=== PATIENT | male | born 1985 | race Two or more races ===

== ENCOUNTER 2025-08-22 16:49 | Emergency (ER) | payer BC, SELFPAY ==
[2025-08-22 16:56] VITALS: BP 128/84
[2025-08-22 17:33] LABS: Hematocrit 41.5 % (39.0-52.0); Hemoglobin 14.9 g/dL (13.0-18.0); Mean Corp Hgb Conc. 35.9 g/dL (33.0-37.0); Mean Corpuscular Volume 83.7 fL (80.0-94.0); Platelet Count 277 10^3/uL (130-400); Red Cell Dist. Width 11.9 % (11.5-14.5)
[2025-08-22 17:35] LABS: ALT (SGPT) 16 U/L (0-50); AST (SGOT) 31 U/L (17-59); Albumin 5.2 g/dl (3.5-5.0); Alkaline Phosphatase 58 U/L (38-126); Blood Urea Nitrogen 20 mg/dl (9-20); Calcium 9.5 mg/dl (8.4-10.2); Carbon Dioxide 28 mmol/L (22-30); Chloride 102 mmol/L (98-107); Glucose 91 mg/dl (70-99); Lipase 71 U/L (23-300); Potassium 4.1 mmol/L (3.5-5.1); Sodium 136 mmol/L (135-145); Total Protein 8.0 g/dl (6.3-8.2); eGFR > 60.00
[2025-08-22 18:04] LABS: Troponin I < 0.012 ng/ml
[2025-08-22 18:46] LABS: Absolute Neutrophils -Man Diff 3.8 10^3/uL (1.4-6.5); Normal RBC Morphology Yes; Platelets Checked Yes; Total Cells Counted 100
[2025-08-22 18:58] LABS: D-Dimer 0.33 ug/mlFEU (0.00-0.50)
--- NOTE | 2025-08-22 19:00 | ED.GENMED ---
History of Present Illness
<Christine Perez PA-C - Last Filed: 08/22/25 19:22>
General
Chief Complaint: Chest Pain
Time Seen by Provider: 08/22/25 18:34
History of Present Illness
History of Present Illness:
Patient is a 39-year-old male with no past medical history who presents with 2 weeks of a cough and intermittent chest pain and shortness of breath. Seen at urgent care this morning and then sent in to rule out PE. Reports that he has coughing
fits causing to lose his breath and he is now coughing up some blood. He is a 1 pack/day smoker. Denies any fevers or chills. No one around him has been ill.
Phy Exam
<Christine Perez PA-C - Last Filed: 08/22/25 19:22>
General Physical Exam
General Presentation: well appearing and no apparent distress
General Skin: warm and dry
General Habitus: normal
General Mental: alert
General Hydration: appears well hydrated
ENT Exam
ENT Exam: EOMI, pharynx normal, neck supple and normocephalic
Eye Exam
Eye Exam: PERRL, cornea clear and conjunctiva normal
Cardiovascular Exam
Cardiovascular Exam: regular rate/rhythm, no edema, no murmur and normal peripheral pulses
Pulmonary Exam
Pulmonary Exam: lungs clear, no respiratory distress, no rales, no crackles, no rhonchi, no stridor, no wheezing and no cough
Gastrointestinal Exam
Gastrointestinal Exam: normal bowel sounds, non tender, soft, no organomegaly, no pulsatile mass and non distended
Neurological Exam
Neurological Exam: alert, oriented x3, no motor deficits and speech normal
Musculoskeletal Exam
Musculoskeletal Exam: full ROM and no edema
Skin Exam
Skin Exam: normal color, warm/dry, no rash and no petechia
Psychiatric Exam
Psychiatric Exam: normal mood/affect
Scores
<Christine Perez PA-C - Last Filed: 08/22/25 19:22>
Heart Score for Chest Pain Patients
STEMI patient?: No
History: Slightly or Non-Suspicious
ECG: Normal
Age: </= 45 years
Risk Factors: No Risk Factors
Troponin: </= Normal Limit
Heart Score for Chest Pain Patients: 0
Heart Score Risk: 2.5% MACE over next 6 weeks
Course
<Christine Perez PA-C - Last Filed: 08/22/25 19:22>
Orders/Labs/Results
Orders:
Orders
08/22/25 16:50
Electrocardiogram (*1) Urgent
Reason for Study: Chest Pain
EKG- Treatment ONCE
08/22/25 17:05
Complete Blood Count/With Diff Urgent
Comprehensive Metabolic Panel Urgent
Lipase Urgent
Manual Differential Urgent
Troponin I Urgent
08/22/25 18:28
CXR2 [CR Chest - 2 Views ] Urgent
Comment:
Reason For Exam: cough
08/22/25 18:40
D-Dimer Urgent
Abnormal Lab Results
08/22/25
17:05
Albumin 5.2 H g/dl
(3.5-5.0)
08/22/25 17:05
08/22/25 17:05
Vital Signs
Initial and Last Documented VS:
Initial Vital Signs
Temp Pulse Resp BP Pulse Ox
36.8 C 81 16 128/84 98
08/22/25 16:56 08/22/25 16:56 08/22/25 16:56 08/22/25 16:56 08/22/25 16:56
Last Documented Vital Signs
Temp Pulse Resp BP Pulse Ox
36.8 C 81 18 128/84 98
08/22/25 16:56 08/22/25 16:56 08/22/25 18:45 08/22/25 16:56 08/22/25 19:04
<Suhail Khalil MD - Last Filed: 08/22/25 19:18>
Orders/Labs/Results
Orders:
Orders
08/22/25 16:50
Electrocardiogram (*1) Urgent
Reason for Study: Chest Pain
EKG- Treatment ONCE
08/22/25 17:05
Complete Blood Count/With Diff Urgent
Comprehensive Metabolic Panel Urgent
Lipase Urgent
Manual Differential Urgent
Troponin I Urgent
08/22/25 18:28
CXR2 [CR Chest - 2 Views ] Urgent
Comment:
Reason For Exam: cough
08/22/25 18:40
D-Dimer Urgent
Abnormal Lab Results
08/22/25
17:05
Albumin 5.2 H g/dl
(3.5-5.0)
08/22/25 17:05
08/22/25 17:05
Vital Signs
Initial and Last Documented VS:
Initial Vital Signs
Temp Pulse Resp BP Pulse Ox
36.8 C 81 16 128/84 98
08/22/25 16:56 08/22/25 16:56 08/22/25 16:56 08/22/25 16:56 08/22/25 16:56
Last Documented Vital Signs
Temp Pulse Resp BP Pulse Ox
36.8 C 81 18 128/84 98
08/22/25 16:56 08/22/25 16:56 08/22/25 18:45 08/22/25 16:56 08/22/25 19:04
<Christine Perez PA-C - Last Filed: 08/22/25 19:22>
MDM/Problems Addressed
Differential Diagnosis Includes:
CBC and CMP unremarkable. Chest x-ray obtained and negative for any infiltrate or effusion. D-dimer negative. Likely viral in etiology however will also test for pertussis. Will send patient home with Z-Ramone and Medrol Dosepak for his cough.
Follow-up with primary care physician if things do not improve within 2 weeks. Will call if pertussis screen is positive
<Christine Perez PA-C - Last Filed: 08/22/25 19:22>
*Pulse Oximetry
SaO2: 98
Oxygen Mode of Delivery: Room air
Patient hypoxic: no
*Critical Care Note
Total Time (30-74mins, 75-104mins- exclusive of procedures): Not Applicable
ED Attending Note
<Christine Perez PA-C - Last Filed: 08/22/25 19:22>
-
Portions of this chart may have been created with voice recognition software.� Occasional wrong word or��sound alike� substitutions may have occurred due to the inherent limitations of voice recognition software.
<Suhail Khalil MD - Last Filed: 08/22/25 19:18>
ED Attending Note
Patient seen and examined by attending physician: Yes
ED Attending Note:
Patient presents to ED secondary to 2 months history of intermittent cough, which has worsened over the past 1 week, with the development of chest pain and phlegm mixed with blood over the past 24 hours. Denies fever or chills. Denies nausea,
vomiting, or diarrhea. Denies rash. Denies headache. Denies sore throat. Denies trauma. Denies sick contact. Denies previous history of similar symptoms. Patient does not smoke. Patient does report having traveled to [place], when his symptoms
started. Patient's vaccinations are up-to-date.
Physical Exam
General: no apparent distress, not acutely ill. afebrile
Head: nc/at. eomi
Neck: supple. no meningeal signs.
Heart: s1/s2 regular rate and rhythm
Lungs: no acute respiratory distress. clear bilaterally
Abdomen: normal bowel sounds. not tender.
Neuro: alert and oriented. no focal neurological deficits
Skin: no rash
Psychiatric: well kept. interactive and cooperative
Extremities: no edema. no calf tenderness.
History and exam consistent with likely URI versus bronchitis versus less likely pulmonary hemorrhage versus PE. In light of patient's description of coughing spells with spasm, will check for pertussis.
Patient will be treated symptomatically with Z-Ramone and prednisone, along with antitussive medication, as well as PCP follow-up. Patient is otherwise afebrile, hemodynamically stable, and is without any acute distress, at time of discharge, to the
care of his family.
Pertussis pending.
Discharge Plan
Departure
Patient Disposition: Home (Routine Discharge)
Date of Disposition: 08/22/25
Time of Disposition: 19:19
Patient with high blood pressure during this ER visit?: No
Discharge Problem:
Cough
Instructions: Cough in adults - ED (DC)
Prescriptions:
New
azithromycin [Zithromax Z-Ramone] 250 mg tablet
250 mg PO DAILY 7 Days Qty: 7 0RF
methylprednisolone [Medrol (Ramone)] 4 mg tablets,dose pack
See Rx Instructions .ROUTE .COMPLEX Qty: 21 0RF
Rx Instructions:
for 6 days
Referrals:
UNKNOWN - PT NOT,INTERVIEWE [Family Provider]
Activity Restrictions/Additional Instructions:
Prescription for an antibiotic called azithromycin has been sent to your pharmacy. You should take the entire course even if you feel better. Medrol Dosepak is also been sent to your pharmacy that should help with your cough. Please follow with
your primary care physician regarding this ER visit and if symptoms do not improve please schedule a sooner appointment.
Interventions
Interventions:
*Risk Screen - Suicide Last Done: 08/22/25 16:56
*General Assessment Last Done: 08/22/25 16:56
*Neglect/Abuse Screening Last Done: 08/22/25 16:56
*ED COVID-19 Vaccine History Last Done: 08/22/25 16:56
*ED Influenza Vaccine History Last Done: 08/22/25 16:56
[facility] Fall Risk Assessment Tool Last Done: 08/22/25 18:45
ED- Cardiac Assessment Last Done: 08/22/25 18:45
Discharge Date and Time
Print Language: CHADIAN
[2025-08-22 19:24] VITALS: BP 118/83
== END 2025-08-22 19:25 | disposition home or self-care (01) ==
LOC: EMR 16:49
PROVIDERS: Surgery Trauma Surgery; EMERGENCY PHYSICIAN Emergency Medicine
DX: R05.9 Cough, unspecified (principal); F17.200 Nicotine dependence, unspecified, uncomplicated
CPT/HCPCS: 99284; 71046; 80053; 83690; 84484; 85025; 85379; 93005